=== PATIENT | male | born 1965 | race Caucasian/White ===

== ENCOUNTER 2021-11-11 11:29 | Outpatient (CLI) | payer OTHER | END 2021-11-11 11:30 | disposition home or self-care (01) | LOC: SCSMRI 11:29 | PROVIDERS: ATTEND Chiropractor | DX: M54.13 Radiculopathy, cervicothoracic region (principal); M48.02 Spinal stenosis, cervical region; M25.78 Osteophyte, vertebrae; M50.31 Other cervical disc degeneration, high cervical region; M47.812 Spondylosis without myelopathy or radiculopathy, cervical region; M50.222 Other cervical disc displacement at C5-C6 level | CPT/HCPCS: 72156; 82565 ==